=== PATIENT | male | born 2005 | race Caucasian/White ===

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

== ENCOUNTER 2025-04-15 18:21 | Emergency (ER) | payer SELFPAY ==
[~2025-04-15] VITALS: Ht 193 cm; Wt 129.7 kg
[~2025-04-15 18:21] MED LIST changes: +ACET32TAB PO; +DOXY-441 PO; -IBUP-1022 PO; +IBUP200T46 PO; +IBUP600T42 PO; +METH36TA13; -METH36TA5
[2025-04-15 19:48] LABS: BASO # 0.0 10^3/uL (0.0-0.2); BASO % 0.3 % (0.0-1.0); EOS # 0.1 10^3/uL (0.0-0.5); EOS % 0.7 % (0.0-3.0); LYMPH # 2.1 10^3/uL (1.5-5.0); LYMPH % 17.1 % (24.0-44.0); MONO # 1.0 10^3/uL (0.0-0.8); MONO % 8.5 % (2.0-8.0); NEUTROPHILS # 8.8 10^3/uL (1.5-8.5); NEUTROPHILS % 73.2 % (36.0-66.0); PLATELET COUNT, AUTOMATED 334 10^3/uL (150-450)
[2025-04-15 19:52] LABS: ERYTHROCYTE SEDIMENTATION RATE 6 mm/hr (0-15)
[2025-04-15 20:13] LABS: C REACTIVE PROTEIN QUANTITATIV 0.51 MG/DL (<1.0); CALCIUM LEVEL 9.9 MG/DL (8.5-10.1); CARBON DIOXIDE LEVEL 24 MMOL/L (20-31); CHLORIDE LEVEL 105 MMOL/L (98-107); CREATININE FOR GFR 0.75 MG/DL (0.70-1.30); GLOMERULAR FILTRATION RATE > 90.0 (>60); POTASSIUM SERUM 3.8 MMOL/L (3.5-5.1); SODIUM LEVEL 142 MMOL/L (136-145)
[2025-04-15] MEDS ORDERED: IBUP600T42 PO (21:15)
[2025-04-15] MEDS ORDERED: AMOX875T2 PO (21:15)
[2025-04-15] MEDS: dexAMETHasone 4 MG/ML 1 ML VIAL IV ONE (21:18)
[2025-04-15] MEDS: AMPICILLIN SOD/SULBACTAM SOD 3 GM in DEXTROSE 5% (D5W) MINI-BAG PLU 100 ML IV ONE (21:18)
[2025-04-15 21:47] VITALS: BP 142/71; TEMP 98.9; O2SAT 98
== END 2025-04-15 21:49 | disposition home or self-care (01) ==
LOC: M ED 18:21
DX: K04.7 Periapical abscess without sinus (principal); Z79.1 Long term (current) use of non-steroidal anti-inflammatories (NSAID); Z79.2 Long term (current) use of antibiotics
CPT/HCPCS: 80048; 83605; 85025; 85652; 86140; 87040; 96365; 96375; 99284; J0295; J1100